=== PATIENT | male | born 1995 | race Caucasian/White ===

== ENCOUNTER 2023-02-24 22:35 | Emergency (ER) | payer BC, SELFPAY ==
[2023-02-24 22:38] VITALS: BP 128/90; PULSE 100; RESP 15; TEMP 36.9; O2SAT 98; BMI 25.9
[2023-02-24 23:37] LABS: Absolute Lymphocyte Count 0.84 X10^3/uL (0.83-4.51); Absolute Neutrophil Count 4.5 X10^3/uL (2.0-7.7); Basophil# 0.03 X10^3/uL; Basophil% 0.4 % (0-1); Hemoglobin 13.2 g/dL (13.0-16.5); Lymphocyte # 0.84 X10^3/ul (0.83-4.51); Lymphocyte % 12.6 % (19-41); Mean Corp Hgb Conc 34.7 g/dL (32-36); Mean Corpuscular Hgb 29.2 pg (27.0-32.0); Mean Corpuscular Volume 84.1 fL (80-94); Mean Platelet Vol. 9.8 fl (6.2-12.0); Monocyte# 1.29 X10^3/uL; Monocyte% 19.3 % (0-10); NRBC Flagged by Analyzer 0 % (0-5); Neutrophil # 4.51 X10^3/uL (2.7-7.7); Neutrophil % 67.6 % (47-70); Platelet Count 230 K/mm3 (150-450); RBC Distribution Width CV 12.4 % (11.6-14.6); RBC Distribution Width SD 37.8 fl (35.1-43.9); Red Blood Count 4.52 M/mm3 (4.6-6.2); White Blood Count 6.7 K/mm3 (4.4-11.0)
[2023-02-24] MEDS: 0.9% Normal Saline (1000mL) 1,000 ML 999 ML IV (23:49)
[2023-02-24 23:58] LABS: ALB/GLOB Ratio 1.1 RATIO (0.9-2.4); AST(SGOT) 26 U/L (15-37); Alanine Aminotransfer ALT/SGPT 53 U/L (16-61); Albumin, Serum 3.9 g/dL (3.2-5.0); Alkaline Phosphatase 98 U/L (45-117); Anion Gap 6 (5-15); BUN 11 mg/dL (7-18); BUN/Creat Ratio 9.6 RATIO (10-20); Chloride 103 mmol/L (98-107); Creatinine, Serum 1.14 mg/dL (0.70-1.30); EST Glomerular Filtration Rate 81 mL/min (>60); Est Glom Filt Rate - Afr Amer 98 mL/min (>60); Globulin 3.5 g/dL (2.2-4.2); Glucose 114 mg/dL (74-106); Protein, Total 7.4 g/dL (6.4-8.2); Sodium Level 136 mmol/L (136-145)
--- NOTE | 2023-02-24 23:59 | EX.ED.DYSGE1 ---
HPI History of Present Illness Chief Complaint: Nausea/Vomiting Informant: patient and spouse/S.O. Narrative Narrative: This with nausea vomiting for about 36 hours. He states he started some mild nasal congestion and feeling like he just had a cold. He has had some arthralgias and slight myalgias. Then about 5 or 6 PM last night he started vomiting. He had soft stool initially but now really has not moved his bowels. He is been vomiting every time he tries to eat or drink anything. He states he is not really having abdominal pain. He has soreness then he vomits and it is better. No measured fever but he has had the sense of chills. No prior abdominal surgeries. No known sick contacts. He did not eat or drink anything that aggravated him. He has no urinary symptoms. PFSH PFSH Medical History no medical history Home Medications ondansetron 4 mg disintegrating tablet 4 mg PO Q8H PRN PRN Nausea #10 tabs 02/25/23 [Rx Last Taken Unknown] promethazine 25 mg tablet 25 mg PO Q6H PRN PRN Nausea #10 TABLETS 02/25/23 [Rx Last Taken Unknown] Allergy/AdvReac Type Severity Reaction Status Date / Time No Known Allergies Allergy Verified 02/24/23 22:41 Social History Smoking Status: Former smoker ROS ROS ED ROS Narrative A complete review of systems was performed and is negative except as documented in the history of present illness. Some specific details below. Constitutional: No recent fevers has had some sense of chills. EYE: No visual complaints color change in his eyes. ENT: No difficulty swallowing. No swelling. No pain. GERD. CV: No chest pain or palpitations. Respiratory: No dyspnea. No hemoptysis. No difficulty taking breaths. GI: Please see history of present illness. : No frequency dysuria or hematuria. He has had very reduced urine output today. Its been darker but still no discomfort with urination. Musculoskeletal: No recent trauma. No pains. Skin: No rash. Nondiaphoretic. Neuro: No weakness or numbness. Endocrine: No polyuria or polydipsia. EXAM Physical Exam Narrative Exam Narrative: CONSTITUTIONAL: Patient is nontoxic in appearance. The patient looks comfortable. HEENT: No notable trauma. Mucous membranes look rather dry. No sinus tenderness. No indication of pain with swallowing. EYES: No conjunctival injection. No proptosis. CARDIOVASCULAR: Tachycardic rate. Regular rhythm. No notable murmur. No JVD. RESPIRATORY: No respiratory distress. Breathing is unlabored. No wheezes. No rhonchi. No rales. No pain with a deep breath. GASTROINTESTINAL: Not distended. Bowel sounds are normal. No tenderness. No guarding. No rebound. No palpable mass. No bruit. His abdomen is benign. GENITOURINARY: No tenderness over the bladder. No CVA tenderness. MUSCULOSKELETAL: Atraumatic. No peripheral edema. No rashes. NEUROLOGICAL: Patient is alert and appropriate. No focal deficit noted. SKIN: No noted rashes. No diaphoresis. PSYCHIATRIC: Patient is calm. Mood is appropriate. Const Vital Signs: 02/24/23 22:38 02/24/23 23:55 02/25/23 00:57 Temperature 98.4 F Temperature Source Temporal Pulse Rate 100 90 Respiratory Rate 15 16 Respiratory Effort Normal Respiratory Pattern Normal Blood Pressure 128/90 H 141/78 H Blood Pressure Mean 102 99 Pulse Ox 98 98 Oxygen Delivery Method Room Air Room Air MDM MDM MDM Narrative Medical decision making narrative: Patient CBC shows no marked abnormalities including white count hemoglobin and platelets. Patient's electrolytes show no marked abnormalities. Glucose is minimally up at 114. Patient's liver function test are well. Patient's lipase is normal. Patient's COVID screen is positive. This is consistent with his symptoms. We discussed Paxlovid but he would prefer not to use it. I think this is reasonable. I will get him home with prescription for Zofran and Phenergan and we discussed the differences and benefits of each. We also discussed reasons to return. Lab Data Attestation: I reviewed the patient's lab results. Labs: Laboratory Results - last 24 hr 02/24/23 23:32 WBC 6.7 RBC 4.52 L Hgb 13.2 Hct 38.0 L MCV 84.1 MCH 29.2 MCHC 34.7 RDW Std Deviation 37.8 RDW Coeff of Valentina 12.4 Plt Count 230 MPV 9.8 Immature Gran % (Auto) 0.100 Neut % (Auto) 67.6 Lymph % (Auto) 12.6 L [place] % (Auto) 19.3 H Eos % (Auto) 0.0 Baso % (Auto) 0.4 Absolute Neuts (auto) 4.5 Absolute Lymphs (auto) 0.84 Nucleated RBC % 0 Sodium 136 Potassium 4.0 Chloride 103 Carbon Dioxide 27.0 Anion Gap 6 BUN 11 Creatinine 1.14 Estim Creat Clear Calc 115.30 Est GFR (MDRD) Af Amer 98 Est GFR (MDRD) Non-Af 81 BUN/Creatinine Ratio 9.6 L Glucose 114 H Calcium 9.0 Total Bilirubin 0.50 AST 26 ALT 53 Alkaline Phosphatase 98 Total Protein 7.4 Albumin 3.9 Globulin 3.5 Albumin/Globulin Ratio 1.1 Lipase 35 Discharge Plan Triage Chief Complaint: Nausea/Vomiting ED Provider: Aneudy Puentes Dx/Rx/DC Orders Clinical Impression: COVID-19, Nausea & vomiting Instructions: Coronavirus Disease 2019 (COVID-19): Caring for Yourself or Others, ED Vomiting (Adult) Prescriptions: New promethazine [promethazine] 25 mg tablet 25 mg PO Q6H PRN PRN (Reason: Nausea) Qty: 10 0RF ondansetron [ondansetron] 4 mg tablet,disintegrating 4 mg PO Q8H PRN PRN (Reason: Nausea) Qty: 10 0RF Primary Care Provider: SHIRLEY PALUMBO Referrals: SHIRLEY PALUMBO [Other] - 1-2 Days if not improving Disposition Disposition: Home, Self Care
[2023-02-25 00:47] LABS: Lipase 35 U/L (13-75)
[2023-02-25] MEDS: 0.9% Normal Saline (1000mL) 1,000 ML 999 ML IV (00:50)
[2023-02-25 00:57] VITALS: BP 141/78; PULSE 90; RESP 16; O2SAT 98
[2023-02-25 01:02] LABS: Bacteria 0 SEEN /hpf (None Seen); Mucous, Urine 0 SEEN /hpf (<or=2+); Red Blood Cells-Urine 0 SEEN /hpf (0-5); Squamous Epithelial Cells - UA 0 SEEN /hpf (0-5)
[2023-02-25 01:03] LABS: Color, Urine Yellow (Yellow); Glucose, Dipstick Normal (Normal); Ketone-Dipstick Negative (Negative); Leukocyte Esterase-Dipstick 25 /ul (Negative); Nitrite-Dipstick Negative (Negative); Occult Blood-Urine Negative /ul (Negative); Protein-Dipstick Negative (Negative); Urine Bilirubin Dipstick Negative (Negative); Urine Clarity Clear (Clear); Urine Urobilinogen Normal (Normal)
[2023-02-25 01:09] LABS: White Blood Cells 0-5 SEEN /hpf (0-5)
== END 2023-02-25 01:17 | disposition home or self-care (01) ==
PROVIDERS: Emergency Provider Emergency Medicine; Visit Provider Emergency Medicine
DX: U07.1 COVID-19 (principal); R11.2 Nausea with vomiting, unspecified; Z87.891 Personal history of nicotine dependence
CPT/HCPCS: 80053; 81001; 83690; 85025; 87811; 96360; 99284; J7030